=== PATIENT | male | born 1965 | race Caucasian/White ===

== ENCOUNTER 2017-04-26 10:40 | Emergency (ER) | payer BC ==
[~2017-04-26] VITALS: Ht 175.3 cm; Wt 177.0 kg
[2017-04-26 13:41] LABS: HEMATOCRIT 46.4 % (38.0-50.0); MCH 30.7 PG (29.0-34.0); MCHC 33.4 G/DL (30.0-36.0); MCV 91.9 FL (86-99); MEAN PLAT.VOLUME 10.2 uM^3 (9.0-12.4); PLATELET COUNT 197 K/uL (156-360); RBC DIS.WIDTH-CV 12.9 % (11.8-14.6); RBC DIS.WIDTH-SD 43.4 % (39-53); RED BLOOD COUNT 5.05 M/uL (4.00-5.50); WHITE BLOOD COUNT 7.1 K/uL (4.1-10.2)
[2017-04-26 13:51] LABS: CHLORIDE 104 mEq/L (99-109); SODIUM 141 mEq/L (136-147)
[2017-04-26 13:53] LABS: GLUCOSE 112 mg/dL (70-99)
[2017-04-26 13:54] LABS: ANION GAP 10 MEQ/L (2-14)
[2017-04-26 13:57] LABS: GFR ESTIMATE (CALCULATED) > 59 mL/min/
[2017-04-26 13:58] LABS: UREA NITROGEN (BUN) 13 mg/dL (9-23)
[2017-04-26] MEDS ORDERED: KEFLEX500 MG PO (14:19)
[2017-04-26 14:36] VITALS: BP 132/71
== END 2017-04-26 14:37 | disposition home or self-care (01) ==
LOC: EME 10:40
PROVIDERS: Physician Assistant
DX: L03.115 Cellulitis of right lower limb (principal)
CPT/HCPCS: 80048; 85027; 93971; 99281; 99284